=== PATIENT | male | born 1975 | race Caucasian/White ===

== ENCOUNTER 2016-05-23 10:56 | Emergency (ER) | payer MEDICARE, OTHER ==
[~2016-05-23 10:56] MED LIST: AMBIEN10 MG PO; ASPIR 8181 MG PO; CELEXA20 MG PO; COREG25 MG PO; HYDRALAZINE HCL25 MG PO; HYDROCHLOROTHIA25 MG PO; LIPITOR40 MG PO; LISINOPRIL40 MG PO; NEURONTIN600 MG PO; NORVASC10 MG PO; NOVOLOG MI100 UNIT/2 SQ; PERCOCET 10-321 EACH PO; PLAVIX75 MG PO; SYNTHROID50 MCG PO; ZYVOX600 MG PO
== END 2016-05-23 12:55 | disposition left against medical advice (07) ==
LOC: ER 10:56
DX: Z53.21 Procedure and treatment not carried out due to patient leaving prior to being seen by health care provider (principal)

== ENCOUNTER 2016-06-19 17:49 | Emergency (ER) | payer MEDICARE, OTHER | END 2016-06-19 21:08 | disposition home or self-care (01) | LOC: ER 17:49 | DX: S61.233A Puncture wound without foreign body of left middle finger without damage to nail, initial encounter (principal); S50.01XA Contusion of right elbow, initial encounter; M54.5 Low back pain; M25.551 Pain in right hip; L98.499 Non-pressure chronic ulcer of skin of other sites with unspecified severity; F41.9 Anxiety disorder, unspecified; E66.9 Obesity, unspecified; E10.22 Type 1 diabetes mellitus with diabetic chronic kidney disease; E10.65 Type 1 diabetes mellitus with hyperglycemia; I12.9 Hypertensive chronic kidney disease with stage 1 through stage 4 chronic kidney disease, or unspecified chronic kidney disease; N18.9 Chronic kidney disease, unspecified; Z86.73 Personal history of transient ischemic attack (TIA), and cerebral infarction without residual deficits; Z79.82 Long term (current) use of aspirin; Z79.02 Long term (current) use of antithrombotics/antiplatelets; Z79.4 Long term (current) use of insulin; Z79.899 Other long term (current) drug therapy; Z88.1 Allergy status to other antibiotic agents; Z68.37 Body mass index [BMI] 37.0-37.9, adult; Z95.1 Presence of aortocoronary bypass graft; W01.198A Fall on same level from slipping, tripping and stumbling with subsequent striking against other object, initial encounter | CPT/HCPCS: 36415; 73502-RT; 96365; 96375; J3370 ==

== ENCOUNTER 2016-08-13 15:54 | Emergency (ER) | payer MEDICARE, OTHER | END 2016-08-13 17:14 | disposition home or self-care (01) | LOC: ER 15:54 | DX: B02.9 Zoster without complications (principal); F41.9 Anxiety disorder, unspecified; I10 Essential (primary) hypertension; E11.9 Type 2 diabetes mellitus without complications; I25.2 Old myocardial infarction ==

== ENCOUNTER 2016-08-17 18:18 | Emergency (ER) | payer MEDICARE, OTHER, BC | END 2016-08-17 23:40 | disposition home or self-care (01) | LOC: ER 18:18 | DX: M86.8X4 Other osteomyelitis, hand (principal); L03.011 Cellulitis of right finger; I12.9 Hypertensive chronic kidney disease with stage 1 through stage 4 chronic kidney disease, or unspecified chronic kidney disease; N18.9 Chronic kidney disease, unspecified; E11.65 Type 2 diabetes mellitus with hyperglycemia; I25.2 Old myocardial infarction; F41.9 Anxiety disorder, unspecified; Z79.82 Long term (current) use of aspirin; Z79.4 Long term (current) use of insulin; Z79.02 Long term (current) use of antithrombotics/antiplatelets; Z79.899 Other long term (current) drug therapy; Z88.1 Allergy status to other antibiotic agents; W45.8XXA Other foreign body or object entering through skin, initial encounter | CPT/HCPCS: 36415; 96365; 96366; 96367; J0696; J3370 ==